=== PATIENT | female | born 1955 | race Caucasian/White ===

== ENCOUNTER → 2016-08-09 | Outpatient (CLI) | payer BC | END | disposition home or self-care (01) | LOC: PCVCIMAG 12:08 | PROVIDERS: ATTEND Internal Medicine Cardiovascular Disease | DX: I48.0 Paroxysmal atrial fibrillation (principal); E78.00 Pure hypercholesterolemia, unspecified; I08.1 Rheumatic disorders of both mitral and tricuspid valves | CPT/HCPCS: 80061; 93005; 93306; G0463 ==

== ENCOUNTER → 2018-05-13 | Outpatient (CLI) | payer BC ==
--- NOTE | 2018-05-13 16:34 | PCVCIMAG ---
APPROVED REPORT Patient Location: Echo lab, Treadmill Room #: Stress Nurse: Tricia Delacruz RN Indications: Paroxsymal Atrial Fib. Hyperlipidemia The patient exercised according to the Devyn for 5:59 MINS., achieving a work level of Max. METS:7.00. The resting heart rate of 66 bpm yolanda to a maximal heart rate of 137 bmp. This value represents 88% of the maximal, age-predicted heart rate. The resting blood pressure of 138/80 mmHg. yolanda to a maximum blood pressure of 160/80mmHg. The exercise stress test was stopped due to dyspnea, target heart rate. Conclusion #1 no production of chest pain or angina patient excised 6 minutes on a Devyn protocol 2 no diagnostic EKG changes no significant ectopy no evidence of QRS widening #3 fair exercise tolerance with appropriate hemodynamic response Impression negative treadmill stress test for ischemia or any induced ectopy. No dysrhythmias fair exercise tolerance
== END | disposition home or self-care (01) ==
LOC: PCVCIMAG 10:18
PROVIDERS: ATTEND Internal Medicine Cardiovascular Disease
DX: I48.0 Paroxysmal atrial fibrillation (principal); E78.5 Hyperlipidemia, unspecified; I47.1 Supraventricular tachycardia; R06.02 Shortness of breath; R00.2 Palpitations
CPT/HCPCS: 93017

== ENCOUNTER → 2019-01-27 | Outpatient (CLI) | payer OTHER ==
--- NOTE | 2019-01-27 13:12 | PCVCIMAG ---
APPROVED REPORT Study performed: 01/27/2019 09:24:36 EXAM: Comprehensive 2D, Doppler, and color-flow Echocardiogram Patient Location: Echo lab Status: routine BSA: 1.70 HR: 64 bpmBP: 116/72 mmHg Rhythm: NSR Other Information Study Quality: Adequate Risk Factors: Cardiac Risk Factors: Hyperlipidemia Indications Palpitations parox a fib 2D Dimensions IVSd: 11.03 (7-11mm) LVDd: 36.80 mm PWd: 10.32 (7-11mm) LVDs: 29.69 (25-40mm) Left Atrium: 30.11 (27-40mm) Aortic Root: 29.58 mm LV Single Plane 4CH: 54.34 % LV Single Plane 2CH: 71.06 % Biplane EF: 64.3 % Volumes Left Atrial Volume (Systole) Single Plane 4CH: 48.46 mLSingle Plane 2CH: 48.11 mL LA ESV Index: 30.00 mL/m2 Aortic Valve AoV Peak Fernandez.: 1.47 m/s AO Peak Gr.: 8.67 mmHgLVOT Max P.91 mmHg LVOT Max V: 1.11 m/s Mitral Valve E/A Ratio: 1.8 MV Decel. Time: 160.42 ms MV E Max Fernandez.: 0.94 m/s MV A Fernandez.: 0.52 m/s IVRT: 103.81 ms Pulmonary Valve PV Peak Fernandez.: 0.78 m/sPV Peak Gr.: 2.43 mmHg Pulmonary Vein P Vein S: 0.31 m/sP Vein A: 0.36 m/s P Vein D: 0.59 m/sP Vein A Dur.: 141.9 msec P Vein S/D Ratio: 0.53 Tricuspid Valve TR Peak Fernandez.: 3.17 m/s TR Peak Gr.: 40.17 mmHg Left Ventricle The left ventricle is normal size. There is normal LV segmental wall motion. There is normal left ventricular wall thickness. Left ventricular systolic function is normal. The left ventricular ejection fraction is within the normal range. LVEF is 60-65%. Grade II - pseudonormal filling dynamics. Right Ventricle The right ventricle is normal size. The right ventricular systolic function is normal. Atria The left atrium size is normal. The right atrium size is normal. Aortic Valve The aortic valve is normal in structure. Mild aortic regurgitation. There is no aortic valvular stenosis. Mitral Valve The mitral valve is normal in structure. Mild to moderate mitral regurgitation. No evidence of mitral valve stenosis. Tricuspid Valve The tricuspid valve is normal in structure. Moderate tricuspid regurgitation with PAP of 47 mmHg. Pulmonic Valve The pulmonary valve is normal in structure. Mild pulmonic regurgitation. Great Vessels The aortic root is normal in size. IVC is normal in size and collapses >50% with inspiration. Pericardium There is no pericardial effusion. There is no pleural effusion. <Conclusion> The left ventricle is normal size. LVEF is 60-65%. Grade II - pseudonormal filling dynamics. The right ventricle is normal size. The left atrium size is normal. Mild aortic regurgitation. Mild to moderate mitral regurgitation. Moderate tricuspid regurgitation with PAP of 47 mmHg. The aortic root is normal in size. There is no pericardial effusion.
== END | disposition home or self-care (01) ==
LOC: PCVCIMAG 09:18
PROVIDERS: ATTEND Internal Medicine Cardiovascular Disease
DX: I08.8 Other rheumatic multiple valve diseases (principal); I48.0 Paroxysmal atrial fibrillation; E78.5 Hyperlipidemia, unspecified; Z79.899 Other long term (current) drug therapy
CPT/HCPCS: 93306